=== PATIENT | female | born 1965 | race Two or more races ===

== ENCOUNTER 2020-06-25 09:50 | Inpatient (IN) | payer MEDICAID, OTHER ==
[~2020-06-25] VITALS: Ht 154.9 cm; Wt 81.0 kg
[2020-06-25 10:34] LABS: Basophils # (auto) 0 10 ^3/uL (0-0.2); Basophils % (auto) 0.2 % (0.0-2.0); Eosinophils # (auto) 0 10 ^3/uL (0-0.8); Lymphocytes # (auto) 0.5 10 ^3/uL (0.4-5.4); Monocytes # (auto) 0.3 10 ^3/uL (0-1.3)
[2020-06-25 10:40] LABS: Hematocrit 36.1 % (36.0-46.0); Hemoglobin 11.3 g/dL (12.2-16.2); Lymphocytes % (auto) 7.5 % (10.0-50.0); Mean Corpuscular Hgb Conc. 31.3 g/dL (32.0-36.0); Mean Corpuscular Volume 76.7 fL (80.0-100.0); Monocytes % (auto) 3.8 % (0.0-12.0); Neutrophils # (auto) 6.2 10 ^3/uL (1.6-8.6); Neutrophils % (auto) 88.5 % (37.0-80.0); Nucleated Red Blood Cells % 0.3 %; Platelet Count (auto) 225 10^3/uL (140-450); Red Cell Distribution Width 17.5 % (11.8-14.3)
[2020-06-25 10:49] LABS: Albumin 3.2 g/dL (3.4-5.0); Anion Gap 8 (5-15); Blood Urea Nitrogen 9 mg/dL (7-18); Calcium 8.1 mg/dL (8.5-10.1); Carbon Dioxide 21 mmol/L (21-32); Chloride 107 mmol/L (98-107); Glucose 101 mg/dL (74-106); Potassium 3.3 mmol/L (3.5-5.1); Sodium 136 mmol/L (136-145)
[2020-06-25 10:55] LABS: Alanine Aminotransferase 17 U/L (13-56); Alkaline Phosphatase 108 U/L (45-117); Aspartate Aminotransferase 13 U/L (15-37); BUN/Creatinine Ratio 12.9; Bilirubin, Total 0.4 mg/dL (0.2-1.0); GFR African American 112 mL/min; GFR Non-African American 92 mL/min; Total Protein 7.9 g/dL (6.4-8.2)
[2020-06-25] MEDS ORDERED: ONDANSETRON HCL 4 MG/2 ML VIAL IV PRN (15:15)
[2020-06-25] MEDS ORDERED: ACETAMINOPHEN 500 MG TAB PO PRN (15:15)
[2020-06-25] MEDS ORDERED: NITROGLYCERIN 0.4 MG SL TAB SL PRN (15:15)
[2020-06-25] MEDS ORDERED: REMDESIVIR PER PHARMACY 0 ML IV SCH ×3 (15:15→17:45)
[2020-06-25] MEDS ORDERED: MORPHINE SULF INJ 2 MG/ML SYRINGE 1ML IV PRN ×2 (15:15)
[2020-06-25] MEDS ORDERED: HYDROcodone-ACET 5/325MG TAB PO PRN (15:15)
[2020-06-25] MEDS ORDERED: POTASSIUM EFFERVESENT TAB 25 MEQ PO ONE (15:30)
[2020-06-25] MEDS: cefTRIAXone 1GM/50ML D5W 50 ML IV SCH (15:41)
[2020-06-25 16:15] LABS: Magnesium 2.6 mg/dL (1.6-2.6)
[2020-06-25] MEDS ORDERED: IBUP800T24 PO (16:20)
[2020-06-25] MEDS ORDERED: ACET1CAP14 PO (16:20)
[2020-06-25] MEDS ORDERED: FERR-7 PO (16:20)
[2020-06-25] MEDS ORDERED: SERT-377 PO (16:20)
[2020-06-25] MEDS ORDERED: PHEN1CAP74 PO (16:20)
[2020-06-25 16:24] LABS: CRP High Sensitivity 9.13 mg/dL (< 0.3)
[2020-06-25] MEDS: AZITHROMYCIN 500MG/ 250ML 250 ML IV SCH (16:45)
[2020-06-25] MEDS ORDERED: REMDESIVIR 200 MG in NS 210ml LOADING DOSE ADULT IV ONE (20:00)
[2020-06-25] MEDS: BUDESONIDE (INHALATION) 180 MCG IH IN SCH (22:00)
[2020-06-26] VITALS (7 sets, daily range): BP systolic 104–119; BP diastolic 59–71
[2020-06-26] MEDS: ENOXAPARIN SOD 40 MG/0.4 ML SYRINGE SC SCH ×3 (01:35→22:00)
--- NOTE | 2020-06-26 01:45 | NUR ---
Telemetry admit from [facility] admitted to Telemetry unit after SBAR received. Patient oriented to Pamela Murray RN primary RN, unit, room, bed, and unit policies regarding patient care and visiting hours. Patient now on continuous telemetry monitoring, tele box # 65 and telemetry reading on arrival to unit is SR. Patient placed on bedside oxygen at 3 Lpm/NC, weighed by bedscale and encouraged to call if they need something. All questions and concerns addressed, all instructions translated by community support worker Haily, patient verbalized understanding, will continue to monitor Note: []
--- NOTE | 2020-06-26 01:46 | NUR ---
Remdesivir started after vital signs check: BP 111/67 HR 74 O2 Sat 96% Temp 98.6
--- NOTE | 2020-06-26 02:01 | NUR ---
Remdesivir after 15mins BP 123/61 HR 74 O2 Sat 99% Temp 98.7
--- NOTE | 2020-06-26 04:00 | NUR ---
V/S post Remdesivir BP 111/59 HR 69 O2 Sat 96% Temp 98.1
[2020-06-26] MEDS: ALBUTEROL SULF HFA 90MCG INH 200DOSE IN PRN ×2 (07:23→21:04)
[2020-06-26] MEDS: BUDESONIDE (INHALATION) 180 MCG IH IN SCH ×2 (07:23→21:04)
--- NOTE | 2020-06-26 07:53 | NUR ---
Opening Shift Note Assumed care of patient, awake and alert. No S/S of distress/SOB, on 3l nc, denies pain. Instructed on POC and to call for assist PRN, will continue to monitor for changes Q1hr and PRN.
[2020-06-26] MEDS: cefTRIAXone 1GM/50ML D5W 50 ML IV SCH (08:58)
[2020-06-26] MEDS: DexAMETHasone SOD PHOS 10MG/1ML VIAL INJ IV SCH (09:36)
[2020-06-26] MEDS: FAMOTIDINE 20 MG TAB PO SCH (09:37)
[2020-06-26] MEDS: ZINC SULFATE 220mg CAP or TAB PO SCH (09:37)
[2020-06-26] MEDS: AZITHROMYCIN 500MG/ 250ML 250 ML IV SCH (09:37)
[2020-06-26] MEDS: ASCORBIC ACID 1,000 MG TAB PO SCH (09:37)
[2020-06-26] MEDS: CHOLECALCIFEROL (VITD3) 2,000 UNIT CAP PO SCH (09:38)
--- NOTE | 2020-06-26 15:00 | NUR ---
Remdesivir started, patient reports feeling well, BP 119/71, p 74, will continue to monitor.
--- NOTE | 2020-06-26 15:18 | NUR ---
15 mins ins in BP 118/69, P 70, will continue to monitor.
[2020-06-26] MEDS: REMDESIVIR 100 MG in SODIUM CHL 0.9% 250 ML IV SCH (15:58)
--- NOTE | 2020-06-26 19:23 | NUR ---
Opening Shift Note Assumed care of patient, awake and alert. No S/S of distress or pain. Patient on 3L NC SPO2 93%-95%. Instructed on POC and to call for assistance PRN, will continue to monitor for changes Q1hr and PRN. Safety precautions in place, bed is in lowest position and locked, bed rails 2x.
[2020-06-27 05:00] VITALS: BP 100/61
[2020-06-27 05:52] VITALS: BP 100/61
--- NOTE | 2020-06-27 07:30 | NUR ---
Opening Shift Note Assumed care of patient, awake and alert. No S/S of distress, SOB with activity, remains on 3l nc, denies pain. Instructed on POC and to call for assist PRN, will continue to monitor for changes Q1hr and PRN.
[2020-06-27] MEDS: ALBUTEROL SULF HFA 90MCG INH 200DOSE IN PRN (07:57)
[2020-06-27] MEDS: BUDESONIDE (INHALATION) 180 MCG IH IN SCH ×2 (07:57→21:00)
[2020-06-27] MEDS: cefTRIAXone 1GM/50ML D5W 50 ML IV SCH (08:24)
[2020-06-27 08:28] LABS: Basophils # (auto) 0 10 ^3/uL (0-0.2); Eosinophils # (auto) 0 10 ^3/uL (0-0.8); Mean Corpuscular Volume 76.5 fL (80.0-100.0); Monocytes # (auto) 0.4 10 ^3/uL (0-1.3); Nucleated Red Blood Cells % 0.1 %
[2020-06-27 08:31] LABS: Basophils % (auto) 0.4 % (0.0-2.0); Eosinophils % (auto) 0.3 % (0.0-7.0); Hematocrit 34.7 % (36.0-46.0); Lymphocytes # (auto) 1.1 10 ^3/uL (0.4-5.4); Lymphocytes % (auto) 22.6 % (10.0-50.0); Mean Corpuscular Hemoglobin 24.2 pg (28.0-32.0); Mean Corpuscular Hgb Conc. 31.7 g/dL (32.0-36.0); Monocytes % (auto) 7.6 % (0.0-12.0); Neutrophils # (auto) 3.5 10 ^3/uL (1.6-8.6); Neutrophils % (auto) 69.1 % (37.0-80.0); Platelet Count (auto) 271 10^3/uL (140-450); Red Blood Cells 4.54 10^6/uL (4.0-5.20); Red Cell Distribution Width 17.6 % (11.8-14.3)
[2020-06-27 08:42] VITALS: BP 103/48
[2020-06-27 08:44] LABS: Albumin 2.8 g/dL (3.4-5.0); Calcium 8.4 mg/dL (8.5-10.1); Magnesium 2.9 mg/dL (1.6-2.6); Potassium 3.3 mmol/L (3.5-5.1)
[2020-06-27] MEDS: DexAMETHasone SOD PHOS 10MG/1ML VIAL INJ IV SCH (09:00)
[2020-06-27] MEDS: CHOLECALCIFEROL (VITD3) 2,000 UNIT CAP PO SCH (09:01)
[2020-06-27] MEDS: ZINC SULFATE 220mg CAP or TAB PO SCH (09:01)
[2020-06-27] MEDS: ASCORBIC ACID 1,000 MG TAB PO SCH (09:01)
[2020-06-27] MEDS: AZITHROMYCIN 500MG/ 250ML 250 ML IV SCH (09:01)
[2020-06-27] MEDS: FAMOTIDINE 20 MG TAB PO SCH (09:01)
[2020-06-27] MEDS: ENOXAPARIN SOD 40 MG/0.4 ML SYRINGE SC SCH ×2 (09:02→22:48)
[2020-06-27 09:05] LABS: BUN/Creatinine Ratio 26.8; Bilirubin, Total 0.3 mg/dL (0.2-1.0); CRP High Sensitivity 5.89 mg/dL (< 0.3); Total Protein 7.5 g/dL (6.4-8.2)
[2020-06-27 12:39] VITALS: BP 94/47
--- NOTE | 2020-06-27 13:00 | NUR ---
Patient reports sob with difficulty catching her breath, patient o2 increased from 3 to 5L, sats at 92-93, reports consistent cough, will continue to monitor.
--- NOTE | 2020-06-27 15:20 | NUR ---
Remdesivir started bp 104/55, p 66, reported feeling well, 15 mins in 102/54 p 67, will continue to monitor.
[2020-06-27] MEDS: REMDESIVIR 100 MG in SODIUM CHL 0.9% 250 ML IV SCH (15:23)
[2020-06-27] MEDS: guaiFENesin-DM 100/10mg/5ml SYR PO PRN ×2 (15:24→22:49)
[2020-06-27] MEDS ORDERED: POTASSIUM CHL 20MEQ/100ML 100 ML IV ONE (15:30)
[2020-06-27] MEDS ORDERED: POTASSIUM CHL 20 Meq TABLET PO ONE (15:30)
[2020-06-27 17:05] VITALS: BP 112/60
--- NOTE | 2020-06-27 17:23 | NUR ---
Assessment Patient is a 54-year-old female who is alert and oriented. Unable to speak to patient. Assessment was completed with patient daughter Hali . Prior to admission patient lived with her and family and functioned with assistance. Per Hali she help patient with her ADL's. Patient will return home to her prior living arrangements post discharge and Hali will transport patient home. Advised Hali there is a social service consult for home health safety evaluation and home oxygen. Informed Hali portable oxygen will be deliver to [facility] and concentrate oxygen to the home. Informed Hali she has the right to participate in all discharge planning. Patient does not have an advance directive. Hali has been provided with information for an advanced directive. Hali verbalized understanding and agrees to discharge plan. Faxed clinical information to [facility], [facility], [facility] and [employer] [facility] Per Deedee with [facility] patient has been accepted and service to start within 24-48hrs upon d.c day. Placed call to Dax with [employer] who advised me they are pending authorization from [facility] [facility], [place] [employer] [facility]. Addendum: 06/27/20 at [address]31 [address] Amended: Links added.
--- NOTE | 2020-06-27 19:20 | NUR ---
Opening Shift Note Assumed care of patient, awake and alert. No S/S of distress or pain. Instructed on POC and to call for assistance PRN, will continue to monitor for changes Q1hr and PRN. Safety precautions in place bed is in lowest position and locked, bed rails 2x.
[2020-06-27 21:34] VITALS: BP 111/59
[2020-06-27] MEDS ORDERED: ENOXAPARIN SOD 40 MG/0.4 ML SYRINGE SC ONE (22:40)
[2020-06-28] MEDS: ALBUTEROL SULF HFA 90MCG INH 200DOSE IN PRN ×3 (02:16→19:46)
[2020-06-28 05:30] VITALS: BP 114/66
[2020-06-28 09:15] VITALS: BP 104/61
[2020-06-28] MEDS: BUDESONIDE (INHALATION) 180 MCG IH IN SCH ×2 (10:00→19:47)
--- NOTE | 2020-06-28 10:30 | NUR ---
Nutrition Assessment Est energy needs 2055-0031 kcal (20-25 kcal/kg BW 79.8kg) Est protein needs 64-80g (0.8-1g/kg BW 79.8kg) Will monitor and reassess prn. Addendum: 06/28/20 at [address] Amended: Links added.
--- NOTE | 2020-06-28 10:30 | NUR ---
Obtain authorization from [facility] for [facility] [id number].
--- NOTE | 2020-06-28 10:36 | NUR ---
patient medications not showing up in pyxis, called pharmacy. Pharmacy to try to renew meds.
[2020-06-28] MEDS: AZITHROMYCIN 500MG/ 250ML 250 ML IV SCH (11:14)
[2020-06-28] MEDS: DexAMETHasone SOD PHOS 10MG/1ML VIAL INJ IV SCH (11:14)
[2020-06-28] MEDS: cefTRIAXone 1GM/50ML D5W 50 ML IV SCH (11:14)
[2020-06-28] MEDS: ENOXAPARIN SOD 40 MG/0.4 ML SYRINGE SC SCH ×2 (11:15→22:24)
[2020-06-28] MEDS: ASCORBIC ACID 1,000 MG TAB PO SCH (11:15)
[2020-06-28] MEDS: CHOLECALCIFEROL (VITD3) 2,000 UNIT CAP PO SCH (11:15)
[2020-06-28] MEDS: ZINC SULFATE 220mg CAP or TAB PO SCH (11:15)
[2020-06-28] MEDS: FAMOTIDINE 20 MG TAB PO SCH (11:15)
[2020-06-28 12:56] VITALS: BP 107/65
--- NOTE | 2020-06-28 15:00 | NUR ---
remdesevir vitals pre 100/70 HR 69 15 min 110/71 HR 71 post 116/76 71
[2020-06-28] MEDS: REMDESIVIR 100 MG in SODIUM CHL 0.9% 250 ML IV SCH (15:10)
[2020-06-28 16:58] VITALS: BP 114/67
--- NOTE | 2020-06-28 19:45 | NUR ---
Opening Shift Note Assumed care of patient, awake and alert. Patient laying in bed. No S/S of distress/SOB or pain. Patient on 4L NC. Safety measures maintained by keeping the bed locked in lowest position, 2 side rails up, personal items and call light within reach. Instructed on POC and to call for assist PRN, will continue to monitor for changes Q1hr and PRN.
[2020-06-28 22:18] VITALS: BP 100/58
[2020-06-29 05:00] VITALS: BP 134/69
[2020-06-29] MEDS: ALBUTEROL SULF HFA 90MCG INH 200DOSE IN PRN ×2 (06:15→21:27)
[2020-06-29] MEDS: BUDESONIDE (INHALATION) 180 MCG IH IN SCH ×2 (06:15→21:27)
[2020-06-29 08:49] VITALS: BP 119/62
[2020-06-29] MEDS: AZITHROMYCIN 500MG/ 250ML 250 ML IV SCH (09:31)
[2020-06-29] MEDS: cefTRIAXone 1GM/50ML D5W 50 ML IV SCH (09:31)
[2020-06-29] MEDS: DexAMETHasone SOD PHOS 10MG/1ML VIAL INJ IV SCH (09:31)
[2020-06-29] MEDS: ZINC SULFATE 220mg CAP or TAB PO SCH (09:32)
[2020-06-29] MEDS: ENOXAPARIN SOD 40 MG/0.4 ML SYRINGE SC SCH ×2 (09:32→21:43)
[2020-06-29] MEDS: ASCORBIC ACID 1,000 MG TAB PO SCH (09:32)
[2020-06-29] MEDS: FAMOTIDINE 20 MG TAB PO SCH (09:32)
[2020-06-29] MEDS: CHOLECALCIFEROL (VITD3) 2,000 UNIT CAP PO SCH (09:32)
[2020-06-29 13:00] VITALS: BP 98/51
[2020-06-29] MEDS: REMDESIVIR 100 MG in SODIUM CHL 0.9% 250 ML IV SCH (15:20)
[2020-06-29] MEDS ORDERED: LOPERAMIDE HCL 2 MG CAP PO PRN (15:45)
[2020-06-29 17:00] VITALS: BP 94/51
--- NOTE | 2020-06-29 19:23 | NUR ---
Opening Shift Note Assumed care of patient, awake and alert. No S/S of distress/SOB or pain. On 2L NC oxygen sat of 98%. Instructed on POC and to call for assist PRN, will continue to monitor for changes Q1hr and PRN.
[2020-06-29 22:00] VITALS: BP 104/55
[2020-06-29] MEDS ORDERED: CHOLESTYRAMINE 4 GM POWDER GT SCH (23:00)
--- NOTE | 2020-06-30 06:49 | NUR ---
Closing note Patient resting in bed with even and unlabored respirations on 2LPM NC, no distress noted. Fall precautions in place with call light within reach.
[2020-06-30 07:02] LABS: Basophils # (auto) 0 10 ^3/uL (0-0.2); Eosinophils # (auto) 0 10 ^3/uL (0-0.8); Hematocrit 33.2 % (36.0-46.0); Hemoglobin 10.6 g/dL (12.2-16.2); Lymphocytes # (auto) 1.3 10 ^3/uL (0.4-5.4); Monocytes # (auto) 0.5 10 ^3/uL (0-1.3)
[2020-06-30 07:14] LABS: Basophils % (auto) 0.2 % (0.0-2.0); Eosinophils % (auto) 0.4 % (0.0-7.0); Lymphocytes % (auto) 26.5 % (10.0-50.0); Mean Corpuscular Hemoglobin 24.6 pg (28.0-32.0); Mean Corpuscular Volume 76.8 fL (80.0-100.0); Monocytes % (auto) 10.6 % (0.0-12.0); Neutrophils # (auto) 3.1 10 ^3/uL (1.6-8.6); Neutrophils % (auto) 62.3 % (37.0-80.0); Nucleated Red Blood Cells % 0.1 %; Platelet Count (auto) 315 10^3/uL (140-450); Red Blood Cells 4.32 10^6/uL (4.0-5.20); Red Cell Distribution Width 17.4 % (11.8-14.3); White Blood Cell 5.1 10^3/uL (4.4-10.8)
[2020-06-30 07:21] LABS: Potassium 3.5 mmol/L (3.5-5.1)
[2020-06-30 07:30] LABS: Albumin 2.7 g/dL (3.4-5.0); BUN/Creatinine Ratio 23.8; Bilirubin, Total 0.3 mg/dL (0.2-1.0); CRP High Sensitivity 0.87 mg/dL (< 0.3); Calcium 8.2 mg/dL (8.5-10.1); Total Protein 6.7 g/dL (6.4-8.2)
[2020-06-30] MEDS: ALBUTEROL SULF HFA 90MCG INH 200DOSE IN PRN (08:27)
[2020-06-30] MEDS: BUDESONIDE (INHALATION) 180 MCG IH IN SCH (08:27)
[2020-06-30 08:57] VITALS: BP 97/59
--- NOTE | 2020-06-30 09:06 | NUR ---
Opening Shift Note Received report from night time nanny RN Blaire, Assumed care of patient, awake and alert. Patient on 1L nasal cannula, No S/S of distress/SOB or pain. Patient oxygen saturation 96%. Instructed on POC for possible DC home and to call for assist PRN, will continue to monitor for changes Q1hr and PRN. Bed in lowest position, call light within reach.
[2020-06-30] MEDS: cefTRIAXone 1GM/50ML D5W 50 ML IV SCH (09:25)
[2020-06-30] MEDS: ZINC SULFATE 220mg CAP or TAB PO SCH (10:27)
[2020-06-30] MEDS: DexAMETHasone SOD PHOS 10MG/1ML VIAL INJ IV SCH (10:27)
[2020-06-30] MEDS: ENOXAPARIN SOD 40 MG/0.4 ML SYRINGE SC SCH (10:28)
[2020-06-30] MEDS: FAMOTIDINE 20 MG TAB PO SCH (10:28)
[2020-06-30] MEDS: ASCORBIC ACID 1,000 MG TAB PO SCH (10:28)
[2020-06-30] MEDS: CHOLECALCIFEROL (VITD3) 2,000 UNIT CAP PO SCH (10:28)
[2020-06-30 10:30] VITALS: BP 99/62
[2020-06-30] MEDS ORDERED: CHOLESTYRAMINE 4 GM POWDER PO SCH (11:45)
[2020-06-30] MEDS ORDERED: AZITHROMYCIN 250 MG TAB PO ONE (11:45)
--- NOTE | 2020-06-30 12:24 | NUR ---
[facility] pharmacy called for DC medication. Order for doxycycline hcl 100 mg po bid for 10 days, ready for tile picker per [facility] pharmacy.
[2020-06-30 13:00] VITALS: BP 98/58
--- NOTE | 2020-06-30 13:19 | NUR ---
UPDATED PATIENT'S DAUGHTER RAFAEL AFTER PASSWORD WAS PROVIDED.
--- NOTE | 2020-06-30 13:53 | NUR ---
SPOKE TO [facility]. PER NEREYDA, [facility] ALREADY FAXED OVER THE INFORMATION FOR OXYGEN. AWAITING FOR DELIVERY.
--- NOTE | 2020-06-30 14:12 | NUR ---
PATIENT TAKEN OFF 1L NASAL CANNULA TO MONITOR OXYGEN SATURATION AND THE NEED FOR OXYGEN TO GO HOME. PATIENT EDUCATED AND VERBALIZED UNDERSTANDING. WILL MONITOR OXYGEN SATURATION IN 15 MINUTES.
--- NOTE | 2020-06-30 14:15 | NUR ---
SS consult for home oxygen. Pt is an alert and oriented female that resides with her daughter. Pt to return home upon discharge and daughter to transport. Faxed clinical information to [employer] for order processing and delivery. Contacted [facility] [employer] case specialist, for auth and faxed clinical information. Obtained auth ( [id number]) and provided to [employer]. Portable to be delivered between 3-6pm. No further SS concerns or needs.
--- NOTE | 2020-06-30 14:25 | NUR ---
OXYGEN SATURATION MONITORED ON ROOM AIR, OXYGEN SATURATION 93%, NO SIGNS OF SOB OR DISTRESS NOTED. PATIENT EDUCATED TO INFORM IF SOB PRESENT, PATIENT VERBALIZED UNDERSTANDING.
--- NOTE | 2020-06-30 16:30 | NUR ---
DISCHARGE MEDICATION DOXYCYCLINE PICKED UP FROM [facility] AND HANDED TO PATIENT.
--- NOTE | 2020-06-30 17:09 | NUR ---
SPOKE WITH PATIENTS DAUGHTER RAFAEL, PASSWORD CONFIRMED. PER DAUGHTER OXYGEN WAS DELIVERED AT HOME. DAUGHTER INFORMED ABOUT OXYGEN TO BE DELIVERED AT THE HOSPITAL IS NEEDED IN ORDER TO DC PATIENT.
--- NOTE | 2020-06-30 18:31 | NUR ---
PATIENTS PORTABLE OXYGEN TANK DELIVERED AT HOME, AND PORTABLE OXYGEN TANK DELIVERED AND AT BEDSIDE. CIVIL DEFENSE DIRECTOR REMOVED AND SENT TO ICU. IV REMOVED, CATHETER INTACT. PATIENT WAITING FOR ARRIVAL OF FAMILY READY FOR DC.
--- NOTE | 2020-06-30 19:26 | NUR ---
Discharge instructions given as ordered. Encourage to follow up with PMD as instructed. All questions and concerns addressed. Patient verbalized understanding. IV removed with catheter intact, pressure dressing applied. Telemetry unit returned to ICU. Patient taken to vehicle via wheelchair with all personal belongings, accompanied by RN. No distress noted at time of departure. Patient down with all belongings and ordered doxycycline medication.
[2020-07-01] MEDS ORDERED: AZITHROMYCIN 250 MG TAB PO SCH (10:00)
== END 2020-06-30 19:25 | disposition home health service (06) | DRG 137 ==
LOC: ER 09:50 → TELE-CENTR 09:51 → TELE-WESTW 06-26 00:10 → UNDODISIN 06-27 10:22
PROVIDERS: ADMIT Nurse Practitioner Acute Care; ATTEND Internal Medicine
PROC: XW033E5 Introduction of Remdesivir Anti-infective into Peripheral Vein, Percutaneous Approach, New Technology Group 5 (ICD-10-PCS; principal; 2020-06-25)
DX: U07.1 COVID-19 (principal); J12.89 Other viral pneumonia; J96.01 Acute respiratory failure with hypoxia; E87.6 Hypokalemia; E66.9 Obesity, unspecified; D68.59 Other primary thrombophilia; E44.1 Mild protein-calorie malnutrition; Z68.33 Body mass index [BMI] 33.0-33.9, adult; E10.9 Type 1 diabetes mellitus without complications; I11.0 Hypertensive heart disease with heart failure; I50.9 Heart failure, unspecified
CPT/HCPCS: 36415; 71045; 80053; 82728; 83036; 83605; 83615; 83735; 84443; 84484; 85025; 85379; 86141; 87040; 87426; 87804; 93005; 94640; 96365; 96367; G0378; J0696; J1100; J3480